=== PATIENT | female | born 1940 | race African-American/Black ===

== ENCOUNTER 2017-08-14 07:57 | Emergency (ER) | payer MEDICARE ==
[~2017-08-14] VITALS: Ht 162.6 cm; Wt 48.7 kg
[~2017-08-14 07:57] MED LIST: AMLO5TAB2 PO; CALC60CR2 TP; CLOP75TA PO; LOSA100T6 PO
[2017-08-14 07:59] VITALS: BP 167/77
== END 2017-08-14 08:45 | disposition home or self-care (01) ==
LOC: ED 08:39
DX: L03.114 Cellulitis of left upper limb (principal); L03.113 Cellulitis of right upper limb; I10 Essential (primary) hypertension
CPT/HCPCS: 99283

== ENCOUNTER 2017-10-01 21:34 | Emergency (ER) | payer MEDICARE ==
[~2017-10-01] VITALS: Ht 165.1 cm; Wt 61.0 kg
[2017-10-01] MEDS ORDERED: LEVE250T5 PO (21:56)
[2017-10-01] MEDS ORDERED: DONE10TA14 PO (21:57)
[2017-10-01] MEDS ORDERED: ONDANSETRON 2MG/ML, 2ML IVPush ONE (22:00)
[2017-10-01] MEDS ORDERED: SODIUM CHLORIDE 0.9% 1,000ML IVBOLUS ONE (22:00)
[2017-10-01 22:15] LABS: BASOPHILS # (AUTO) 0.02 x10^3/uL (0-0.1); BASOPHILS % (AUTO) 0 % (0-1); EOSINOPHILS # (AUTO) 0.04 x10^3/uL (0-0.4); EOSINOPHILS % (AUTO) 1 % (1-7); LYMPHOCYTES # (AUTO) 1.08 x10^3/uL (1-3.4); LYMPHOCYTES % (AUTO) 14 % (22-44); MD NO; MEAN CORPUSCULAR HEMOGLOBIN 29.3 pg (27.0-34.8); MEAN CORPUSCULAR HGB CONC 33.3 g/dL (32.4-35.8); MEAN CORPUSCULAR VOLUME 87.8 fL (80-100); MEAN PLATELET VOLUME 8.4 fL (7.4-10.4); MONOCYTES % (AUTO) 4 % (2-9); NEUTROPHILS # (AUTO) 6.24 x10^3/uL (1.8-6.8); NEUTROPHILS % (AUTO) 81 % (42-75); PLATELET COUNT 254 x10^3/uL (130-400); RED BLOOD COUNT 4.38 x10^6/uL (3.82-5.3); RED CELL DISTRIBUTION WIDTH 13.4 % (9.6-15.2)
[2017-10-01 22:28] LABS: ALBUMIN 3.5 g/dL (3.4-5.0); ANION GAP 8 mmol/L (5-15); CALCIUM 8.8 mg/dL (8.5-10.1); CHLORIDE 107 mmol/L (98-107)
[2017-10-01 22:35] LABS: ALANINE AMINOTRANSFERASE 18 U/L (12-78); ALKALINE PHOSPHATASE 104 U/L (45-117); BILIRUBIN,TOTAL 0.5 mg/dL (0.2-1.0); TOTAL PROTEIN 7.4 g/dL (6.4-8.2); TROPONIN I < 0.015 ng/mL (0.000-0.045)
[2017-10-01 22:36] LABS: CREATININE 0.96 mg/dL (0.55-1.02)
[2017-10-01 23:05] LABS: MICROSCOPIC AUTO
[2017-10-01 23:08] LABS: CULTURE INDICATED? NO
[2017-10-01] MEDS ORDERED: OMNIPAQUE 350 MG/ML, 100ML BOTTLE ONE (23:12)
[2017-10-02 00:22] VITALS: BP 132/88
== END 2017-10-02 00:52 | disposition home or self-care (01) ==
LOC: ED 22:13
DX: R10.13 Epigastric pain (principal); I10 Essential (primary) hypertension; G30.9 Alzheimer's disease, unspecified
CPT/HCPCS: 36415; 74177; 80053; 81001; 83690; 84484; 85025; 96360; 96361; 99285; J7030; Q9967

== ENCOUNTER 2018-05-08 19:17 | Emergency (ER) | payer MEDICARE ==
[~2018-05-08] VITALS: Ht 162.6 cm; Wt 47.1 kg
[~2018-05-08 19:17] MED LIST changes: +AMLO1CAP14 PO; +DONE10TA14 PO; +HYDR28.430 TP; +LEVE250T5 PO
[2018-05-08 20:03] LABS: BASOPHILS # (AUTO) 0.01 x10^3/uL (0-0.1); BASOPHILS % (AUTO) 0 % (0-1); EOSINOPHILS # (AUTO) 0.05 x10^3/uL (0-0.4); EOSINOPHILS % (AUTO) 1 % (1-7); LYMPHOCYTES # (AUTO) 1.47 x10^3/uL (1-3.4); LYMPHOCYTES % (AUTO) 31 % (22-44); MD NO; MEAN CORPUSCULAR HEMOGLOBIN 29.9 pg (27.0-34.8); MEAN CORPUSCULAR HGB CONC 33.7 g/dL (32.4-35.8); MEAN CORPUSCULAR VOLUME 88.8 fL (80-100); MEAN PLATELET VOLUME 8.4 fL (7.4-10.4); MONOCYTES # (AUTO) 0.36 x10^3/uL (0.2-0.8); MONOCYTES % (AUTO) 8 % (2-9); NEUTROPHILS % (AUTO) 60 % (42-75); PLATELET COUNT 264 x10^3/uL (130-400); RED BLOOD COUNT 4.25 x10^6/uL (3.82-5.3); RED CELL DISTRIBUTION WIDTH 14.4 % (9.6-15.2)
[2018-05-08 20:04] LABS: ALANINE AMINOTRANSFERASE 23 U/L (12-78); ALBUMIN 3.8 g/dL (3.4-5.0); ANION GAP 7 mmol/L (5-15); CALCIUM 8.4 mg/dL (8.5-10.1); CHLORIDE 107 mmol/L (98-107); CREATININE 1.19 mg/dL (0.55-1.02)
[2018-05-08 20:09] LABS: ALKALINE PHOSPHATASE 89 U/L (45-117); BILIRUBIN,TOTAL 0.4 mg/dL (0.2-1.0); TROPONIN I < 0.015 ng/mL (0.000-0.045)
[2018-05-08] MEDS ORDERED: LEVETIRACETAM PO (20:22)
[2018-05-08 21:00] LABS: MICROSCOPIC AUTO
[2018-05-08 21:02] LABS: CULTURE INDICATED? YES
[2018-05-08 22:20] VITALS: BP 124/77
== END 2018-05-08 22:22 | disposition home or self-care (01) ==
LOC: ED 22:16
DX: R42 Dizziness and giddiness (principal); G30.9 Alzheimer's disease, unspecified; I10 Essential (primary) hypertension; F02.80 Dementia in other diseases classified elsewhere, unspecified severity, without behavioral disturbance, psychotic disturbance, mood disturbance, and anxiety
CPT/HCPCS: 36415; 71045; 80053; 81001; 84484; 85025; 87086; 93005; 99285

== ENCOUNTER 2018-08-13 14:02 | Emergency (ER) | payer MEDICARE ==
[~2018-08-13] VITALS: Ht 162.6 cm; Wt 48.0 kg
[~2018-08-13 14:02] MED LIST changes: -AMLO5TAB2 PO; +AMLO5TAB7 PO; +LEVETIRACETAM PO; -LOSA100T6 PO; +LOSA100T7 PO
[2018-08-13 14:45] LABS: BASOPHILS # (AUTO) 0.01 x10^3/uL (0-0.1); BASOPHILS % (AUTO) 0 % (0-1); EOSINOPHILS # (AUTO) 0.07 x10^3/uL (0-0.4); EOSINOPHILS % (AUTO) 2 % (1-7); LYMPHOCYTES # (AUTO) 1.73 x10^3/uL (1-3.4); LYMPHOCYTES % (AUTO) 35 % (22-44); MD NO; MEAN CORPUSCULAR HEMOGLOBIN 29.9 pg (27.0-34.8); MEAN CORPUSCULAR HGB CONC 33.5 g/dL (32.4-35.8); MEAN CORPUSCULAR VOLUME 89.1 fL (80-100); MEAN PLATELET VOLUME 8.7 fL (7.4-10.4); MONOCYTES % (AUTO) 8 % (2-9); NEUTROPHILS # (AUTO) 2.74 x10^3/uL (1.8-6.8); NEUTROPHILS % (AUTO) 55 % (42-75); PLATELET COUNT 270 x10^3/uL (130-400); RED BLOOD COUNT 4.68 x10^6/uL (3.82-5.3)
[2018-08-13 15:02] LABS: ALBUMIN 4.1 g/dL (3.4-5.0); ANION GAP 8 mmol/L (5-15); CALCIUM 8.6 mg/dL (8.5-10.1); CHLORIDE 105 mmol/L (98-107); CREATININE 1.12 mg/dL (0.55-1.02)
[2018-08-13 15:06] LABS: TROPONIN I < 0.015 ng/mL (0.000-0.045)
[2018-08-13 15:07] LABS: MICROSCOPIC AUTO
[2018-08-13 15:12] LABS: CULTURE INDICATED? NO
[2018-08-13 15:53] VITALS: BP 107/65
== END 2018-08-13 15:55 | disposition home or self-care (01) ==
LOC: ED 15:45
DX: R42 Dizziness and giddiness (principal); I10 Essential (primary) hypertension; G30.9 Alzheimer's disease, unspecified; F02.80 Dementia in other diseases classified elsewhere, unspecified severity, without behavioral disturbance, psychotic disturbance, mood disturbance, and anxiety
CPT/HCPCS: 36415; 80048; 81001; 82040; 84484; 85025; 93005; 99285

== ENCOUNTER 2019-04-10 17:36 | Emergency (ER) | payer MEDICARE ==
[~2019-04-10] VITALS: Ht 162.6 cm; Wt 47.0 kg
[~2019-04-10 17:36] MED LIST changes: +AMLO-150 PO; -AMLO5TAB7 PO; +LOSA100T14 PO; -LOSA100T7 PO
[2019-04-10 17:39] VITALS: BP 133/88
--- NOTE | 2019-04-10 18:41 | NUR ---
CALLED FOR ROOM, NO ANSWER
--- NOTE | 2019-04-10 19:05 | NUR ---
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
--- NOTE | 2019-04-10 19:23 | NUR ---
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
== END 2019-04-10 19:25 | disposition left against medical advice (07) ==
LOC: ED 19:19
DX: R10.9 Unspecified abdominal pain (principal); H57.10 Ocular pain, unspecified eye; R51 Headache; Z53.21 Procedure and treatment not carried out due to patient leaving prior to being seen by health care provider
CPT/HCPCS: 93005

== ENCOUNTER 2019-10-16 13:18 | Emergency (ER) | payer MEDICARE ==
[~2019-10-16] VITALS: Ht 162.6 cm; Wt 44.8 kg
[~2019-10-16 13:18] MED LIST changes: -AMLO1CAP14 PO; +AMLO1CAP53 PO
[2019-10-16 13:21] VITALS: BP 144/81
[2019-10-16] MEDS ORDERED: PROPARACAINE OPHTH 0.5%, 15ML ONE (13:51)
[2019-10-16] MEDS ORDERED: FLUORESCEIN OPHTHALMIC 1 MG STRIP ONE (13:51)
== END 2019-10-16 14:46 | disposition home or self-care (01) ==
LOC: ED 14:40
DX: H18.452 Nodular corneal degeneration, left eye (principal); Z90.710 Acquired absence of both cervix and uterus; Z87.891 Personal history of nicotine dependence
CPT/HCPCS: 99281; 99282

== ENCOUNTER 2020-02-26 20:57 | Emergency (ER) | payer MEDICARE ==
[~2020-02-26] VITALS: Ht 162.6 cm; Wt 47.7 kg
[2020-02-26 21:01] VITALS: BP 139/74
--- NOTE | 2020-02-26 21:05 | NUR ---
BIB [facility] - L EYE SWELLING/RECINOS X1 WEEK, RECENT CATARACT SURGERY ON R EYE, PT ALSO STATES SHE IS ANXIOUS ABOUT BEING HOME ALONE. VSS. PT CONFUSED AND STATES SHE HAS MEMORY LOSS. BED RAILS UP, BLANKETS GIVEN. CALL LIGHT WITHIN REACH.
[2020-02-26] MEDS ORDERED: NEOSPORIN OINT. PKT 1 PACKET ONE (21:34)
--- NOTE | 2020-02-26 21:57 | NUR ---
PT DISCHARGED WITH [facility]
[2020-02-26] MEDS ORDERED: DICYCLOMINE 10 MG/ML, 2ML ONE (22:10)
== END 2020-02-26 22:09 | disposition home or self-care (01) ==
LOC: ED 21:50
DX: F41.1 Generalized anxiety disorder (principal); R51 Headache; H57.12 Ocular pain, left eye; R42 Dizziness and giddiness; Z90.710 Acquired absence of both cervix and uterus
CPT/HCPCS: 99283